=== PATIENT | female | born 1975 | race Caucasian/White ===

== ENCOUNTER → 2020-07-26 10:08 | Outpatient (CLI) | payer OTHER, MEDICAID, SELFPAY ==
[2020-07-26] MEDS: COVID-19 VACC #1, MRNA(MOD) 100 MCG/0.5 ML VIAL IM (10:19)
== END ==
PROVIDERS: Visit Provider Internal Medicine
DX: Z23 Encounter for immunization (principal)
CPT/HCPCS: 0011A; 91301

== ENCOUNTER → 2020-08-23 10:32 | Outpatient (CLI) | payer OTHER, MEDICAID, SELFPAY ==
[2020-08-23] MEDS: COVID-19 VACC #2, MRNA(MOD) 100 MCG/0.5 ML VIAL IM (10:40)
== END ==
PROVIDERS: PCP Physician Assistant Medical; Visit Provider Internal Medicine
DX: Z23 Encounter for immunization (principal)
CPT/HCPCS: 0012A; 91301

== ENCOUNTER → 2021-03-28 16:58 | Outpatient (CLI) | payer OTHER, MEDICAID, SELFPAY ==
[2021-04-15 10:44] LABS: Candida species NEGATIVE; Trichomoas vaginalis NEGATIVE
[2021-04-15 10:45] LABS: Gardnerella vaginalis POSITIVE
== END ==
PROVIDERS: PCP Physician Assistant Medical; Referring Provider Physician Assistant; Visit Provider Physician Assistant
DX: Z11.3 Encounter for screening for infections with a predominantly sexual mode of transmission (principal); Z12.4 Encounter for screening for malignant neoplasm of cervix
CPT/HCPCS: 87480; 87510; 87660

== ENCOUNTER → 2022-01-21 09:22 | Outpatient (CLI) | payer OTHER, MEDICAID, SELFPAY ==
[2022-01-21 20:26] LABS: Add Manual Diff / Slide Review NO; Basophils Absolute Auto 0 /uL (0-100); Basophils Percent Auto 0.5 % (0-2); Eosinophils Absolute Auto 600 /uL (0-450); Hematocrit 41.3 % (36-46); Lymphocytes Absolute Auto 2100 /uL (1100-4500); Lymphocytes Percent Auto 27.7 % (25-40); Mean Corpuscular Hemoglobin 30.8 PG (26-34); Mean Corpuscular Volume 90.4 fL (80-100); Monocytes Absolute Auto 600 /uL (0-900); Monocytes Percent Auto 7.9 % (3-14); Neutrophils Absolute Auto 4200 /uL (1500-7000); Neutrophils Percent Auto 55.9 % (50-75); Platelet Count 346 X10^3/uL (150-400); Red Blood Cell Count 4.56 X10^6/uL (4.0-5.2); Red Cell Distribution Width 12.9 % (11.6-14.8); White Blood Cell Count 7.6 X10^3/uL (4.5-11.0)
[2022-01-21 20:29] LABS: Alanine Aminotransferase 17 IU/L (<35); Albumin 4.5 g/dL (3.5-5.0); Albumin Globulin Ratio 1.2 (1.0-2.8); Alkaline Phosphatase 70 U/L (38-126); Aspartate Aminotransferase 25 IU/L (14-36); BUN Creatinine Ratio 21.4 (6-22); Bilirubin Total 0.5 mg/dL (0.2-1.3); Blood Urea Nitrogen 15 mg/dL (7-17); Calcium 9.3 mg/dL (8.4-10.2); Carbon Dioxide 29 mmol/L (22-32); Chloride 101 mmol/L (98-107); Estimated Glomerular Filt Rate > 60 mL/min (>60); Globulin 3.9 g/dL (1.7-4.1); Glucose 109 mg/dL (70-100); HEMOLYSIS 15 (0-50); Potassium 3.9 mmol/L (3.4-5.1); Sodium 140 mmol/L (137-145); Total Protein 8.4 g/dL (6.3-8.2)
[2022-01-21 21:00] LABS: TSH w/ Reflex to FT4 1.18 uIU/mL (0.47-4.68)
== END ==
PROVIDERS: PCP Physician Assistant Medical; Visit Provider Physician Assistant
DX: F41.9 Anxiety disorder, unspecified (principal); Z79.899 Other long term (current) drug therapy
CPT/HCPCS: 80053; 80305; 84443; 85025

== ENCOUNTER → 2022-02-10 14:12 | Outpatient (CLI) | payer OTHER, MEDICAID, SELFPAY ==
--- NOTE | 2022-02-10 14:14 | DI.ECHO.S_ITS ---
[facility]---------+ [facility] +---------+ : : [address] : [address] : : : : [id number] : : : : Phone: [phone]+ Echocardiogram Report + + :Name: JEFFREY HERNANDEZ Study Date: 02/10/2022 Height: 63 in : :[facility] ReadingLocation: Weight: 155 lb : : Gender: Female BSA: 1.7 m2 : :: 1975 Age: 46 yrs BP: 133/77 mmHg: :Reason For Study: Murmur : :Ordering Physician: RENNY, : :JESSICA Performed By: Tesfaye Méndez : :Referring: JESSICA LAWSON : + + Interpretation Summary The ejection fraction is estimated to be 60-65%. Diastolic parameters suggest probable normal left ventricular diastolic function and normal filling pressures. The right ventricle is normal in size and function. No significant valvular abnormalities. Unable to estimate PASP. Procedure: A two-dimensional transthoracic echocardiogram with color flow and Doppler was performed. The study quality was technically adequate. There is no prior echocardiogram noted for this patient. The patient was in normal sinus rhythm during the exam. Left Ventricle: The left ventricle is normal in size and wall thickness. Left ventricular systolic function is normal. The ejection fraction is estimated to be 60-65%. There are no focal wall motion abnormalities. Diastolic parameters suggest probable normal left ventricular diastolic function and normal filling pressures. Right Ventricle: The right ventricle is normal in size and function. Atria: Both atria are normal in size. The interatrial septum grossly appears intact with no obvious evidence for an atrial septal defect. Mitral Valve: The mitral valve is normal in structure and function. There is no mitral regurgitation noted. Aortic Valve: The aortic valve is normal in structure and function. There is no aortic valve stenosis. No aortic regurgitation is present. Tricuspid Valve: The tricuspid valve is normal in structure and function. There is trace tricuspid regurgitation. Pulmonary artery pressures cannot be estimated because of the lack of a measurable TR jet velocity. Pulmonic Valve: The pulmonic valve is normal in structure and function. There is a trace or physiologic amount of pulmonic regurgitation. Great Vessels: The aortic root is normal size. The dimensions of the ascending aorta are normal. The IVC is of normal diameter and collapses greater than 50% with a sniff. This suggests a low right atrial pressure of 3 mm Hg. Pericardium/ Pleura There is no pericardial effusion. There is no pleural effusion. MMode/2D Measurements & Calculations LVIDd: 4.4 cm LVOT diam: 1.8 cm LVIDs: 2.7 cm Ao root diam: 2.3 cm FS: 38.6 % asc Aorta Diam: 2.5 cm IVSd: 0.80 cm LVPWd: 0.90 cm LV harrington. diameter/BSA (cm/m^2): 2.5 LV sys. diameter/BSA (cm/m^2): 1.6 LA dimension: 3.4 cm RA long axis: 4.6 cm LA A2 area: 8.7 cm2 RA area: 12.6 cm2 LA A4 area: 15.1 cm2 RA vol: 29.6 ml LA length (vol): 4.0 cm RA : 17.0 ml/m2 LA vol: 27.7 ml LA vol index: 16.0 ml/m2 TAPSE_phl: 2.3 cm Doppler Measurements & Calculations Ao V2 max: 154.0 cm/sec LVOT Max Ernie: 133.0 cm/sec Ao V2 mean: 104.0 cm/sec LV V1 max P.1 mmHg Ao max P.0 mmHg LV V1 VTI: 25.2 cm Ao mean P.0 mmHg PAMELA(I,D): 2.3 cm2 Ao V2 VTI: 28.1 cm PAMELA(V,D): 2.2 cm2 sev ratio: 0.90 PAMELA indexed to BSA (cm^2/m^2): 1.3 MV E max ernie: 85.9 cm/sec SV(LVOT): 64.1 ml MV A max ernie: 60.6 cm/sec MV E/A: 1.4 Med Peak E' Ernie: 9.1 cm/sec E/E' med: 9.4 Lat Peak E' Ernie: 13.8 cm/sec E/E' lat: 6.2 E/e' average: 7.8 MV dec time: 0.24 sec AV VR_phl: 0.86 MV P1/2t-pr_phl: 71.0 msec PAMELA(VTI)/BSA_phl: 1.3 Reading Physician:04:40 PM
== END ==
PROVIDERS: PCP Physician Assistant Medical; Referring Provider Physician Assistant; Visit Provider Physician Assistant
DX: R01.1 Cardiac murmur, unspecified (principal)
CPT/HCPCS: 93306

== ENCOUNTER 2023-08-18 13:00 | Emergency (ER) | payer OTHER, MEDICAID, SELFPAY ==
[2023-08-18 13:08] VITALS: BP 138/75; PULSE 78; RESP 18; TEMP 36.8; O2SAT 98; BMI 24.7
--- NOTE | 2023-08-18 13:23 | ED_ITS ---
HPI - General Adult General Chief complaint: Eye Problems Stated complaint: detached retina per pt, sent by [facility] Time Seen by Provider: 08/18/23 13:05 Source: patient Mode of arrival: Ambulatory History of Present Illness HPI narrative: Patient is a 48-year-old female. No prior eye surgeries. She does wear corrective lenses. She did have a new prescription several months ago. No trauma to her eyes. States that last evening she started noticing a ring of bright flashes that has been persistent and is also having some dark floaters. These are all new. They have improved a slight amount since the start last evening. She states that it does follow her visual field. She has no pain. No blurry vision or double vision. No headache. No sinus congestion. No sore throat. No ear pain. Related Data Previous Rx's Medication Instructions Recorded triamcinolone acetonide 0.1 % 1 applic topical BID #30 grams 04/29/21 topical ointment bupropion HCl 150 mg tablet,12 hr 150 mg PO QAM #30 ea 01/21/22 sustained-release (Wellbutrin SR) hydroxyzine HCl 50 mg tablet 50 mg PO BEDTIME anxiety/insomnia 01/21/22 #30 tabs triamcinolone acetonide 0.1 % 1 applic topical DAILY #453.6 grams 06/10/23 topical cream Allergies Allergy/AdvReac Type Severity Reaction Status Date / Time iodine Allergy Mild Rash Verified 06/10/23 15:03 Review of Systems Review of Systems Narrative: See HPI Patient History Medical History Insomnia Depression with anxiety Social History Smoking Status: Never smoker Smoking Status: Never smoker alcohol intake frequency: a few times a month Substance Use Type: does not use Exam Initial Vital Signs Initial Vital Signs: Vital Signs Temperature 98.3 F 08/18/23 13:08 Pulse Rate 78 08/18/23 13:08 Respiratory Rate 18 08/18/23 13:08 Blood Pressure 138/75 08/18/23 13:08 Pulse Oximetry 98 08/18/23 13:08 Oxygen Delivery Method Room Air 08/18/23 13:08 HENMT Head: normal to inspection and normocephalic Face and sinus: normal facial exam Mouth: oral mucosae normal Eyes Periorbital: periorbital findings normal Sclera: sclerae normal Other: Intra-ocular pressure right eye is 19. Intra-ocular pressure left eye is 20. Visual acuity 20/15 right eye, 20/15 left eye. Extraocular muscles are intact. Pupils are equal round reactive. Bedside ultrasound shows no signs of retinal detachment. Skin General: no rashes or lesions noted Neuro General: patient alert, patient awake and moves all extremities Extrem General: capillary refill normal Course Orders Ordered: Discontinued Medications Proparacaine HCl (Proparacaine 0.5% Ophth Suad) 1 drops EYE-RIGHT NOW ONE Stop: 08/18/23 13:23 Last Admin: 08/18/23 13:26 Dose: 1 drop Vital Signs Vital signs: Vital Signs - 8 hr 08/18/23 13:08 08/18/23 13:51 Temperature 98.3 F Pulse Rate 78 73 Respiratory Rate 18 16 Blood Pressure 138/75 122/63 Pulse Oximetry 98 100 Oxygen Delivery Method Room Air Room Air Medical Decision Making [facility] Narrative Medical decision making narrative: Workup here in the emergency department is very reassuring. Based on her history I suspect that this is a vitreous detachment. I have lower suspicion of a retinal detachment. We did discuss the possibility of increased incidence of retinal detachment over the next couple weeks. 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 He was given return precautions and follow-up instructions. She expressed understanding and agreement. Discharge Plan Departure Patient Disposition: Home Clinical Impression: Vitreous floaters of right eye Instructions: DI for Eye Floaters Activity Restrictions/Additional Instructions: Recommend that you continue to take all of your medications as directed. I also recommend that you contact your beauty advisor for a follow-up. Return to the emergency department for new or worsening symptoms Prescriptions: No Action triamcinolone acetonide 0.1 % ointment 1 applic topical BID Qty: 30 1RF Rx Instructions: Do not use more than two weeks at a time bupropion HCl [Wellbutrin SR] 150 mg tablet sustained-release 12 hr 150 mg PO QAM Qty: 30 6RF hydroxyzine HCl 50 mg tablet 50 mg PO BEDTIME Qty: 30 4RF triamcinolone acetonide 0.1 % cream 1 applic topical DAILY Qty: 453.6 0RF Referrals: Irena Mcpherson PA-C [Primary Care Provider] - Stand Alone Forms: Patient Portal/API
[2023-08-18] MEDS: PROPARACAINE 0.5% OPHTH SOL 1 DROPS EYE-RIGHT (13:26)
[2023-08-18 13:51] VITALS: BP 122/63; PULSE 73; RESP 16; O2SAT 100
== END 2023-08-18 13:51 | disposition home or self-care (01) ==
PROVIDERS: Emergency Provider Emergency Medicine; PCP Physician Assistant Medical
DX: H43.391 Other vitreous opacities, right eye (principal)
CPT/HCPCS: 99282